=== PATIENT | male | born 1990 | race Hispanic/Latino ===

== ENCOUNTER 2021-08-11 06:35 | Inpatient (IN) | payer SELFPAY ==
[~2021-08-11] VITALS: Ht 170.2 cm; Wt 61.2 kg
[2021-08-11 07:13] LABS: BASOPHILS % (AUTO) 0.2 % (0.0-5.0); EOSINOPHILS % (AUTO) 0.6 % (0.0-8.0); HEMATOCRIT 46.9 % (42-54); LYMPHOCYTES % (AUTO) 15.5 % (21.0-51.0); MEAN CORPUSCULAR HEMOGLOBIN 31.6 pg (27.0-33.0); MEAN CORPUSCULAR HGB CONC 34.3 g/dL (32.0-36.0); NEUTROPHILS % (AUTO) 77.3 % (40.0-77.0); PLATELET COUNT (AUTO) 275 K/uL (130-400)
[2021-08-11 07:40] LABS: ALBUMIN 4.9 g/dL (3.5-5.0); BILIRUBIN,TOTAL 0.6 mg/dL (0.2-1.0); CREATININE 0.9 mg/dL (0.5-1.5); POTASSIUM 3.8 mmol/L (3.5-5.1); TOTAL PROTEIN, SERUM 8.9 g/dL (6.0-8.3)
[2021-08-11] MEDS ORDERED: KETOROLAC 30MG VIAL (30MG/ML) IV SCH (09:30)
[2021-08-11] MEDS: CEFAZOLIN SODIUM 1 GM VIAL IVP SCH ×2 (13:35→20:21)
[2021-08-11] MEDS: LACTATED RINGERS 1000ML 1,000 ML IV SCH (13:35)
[2021-08-11] MEDS: MORPHINE 2 MG SYG IVP PRN ×3 (13:43→22:22)
[2021-08-11 14:59] LABS: INR 1.06 (0.85-1.15); PROTHROMBIN TIME 11.5 SEC (9.6-11.6)
[2021-08-11 15:00] LABS: PARTIAL THROMBOPLASTIN TIME 28.8 SEC (26.3-35.5)
[2021-08-11 16:30] VITALS: BP 133/76
[2021-08-11 20:00] VITALS: BP 129/76
[2021-08-11] MEDS: KETOROLAC 15MG/ML VIAL (15MG/ML) IV PRN (20:22)
[2021-08-11 21:46] LABS: APPEARANCE,URINE Clear (CLEAR); BILIRUBIN,URINE Negative (NEGATIVE); COLOR,URINE Yellow (YELLOW); GLUCOSE, URINE (UA) Negative (NEGATIVE); KETONES,URINE 40 mg/dL (NEGATIVE); LEUKOCYTE ESTERASE ,URINE Trace (NEGATIVE); NITRATE,URINE Negative (NEGATIVE); OCCULT BLOOD,URINE Negative (NEGATIVE); PROTEIN,URINE Negative (NEGATIVE)
[2021-08-11 21:54] LABS: AMPHET/METH SCREEN,URINE NEGATIVE (NEGATIVE); BARBITURATE SCREEN, URINE NEGATIVE (NEGATIVE); BENZODIAZEPINES SCREEN,URINE NEGATIVE (NEGATIVE); CANNABINOID SCREEN,URINE NEGATIVE (NEGATIVE); COCAINE SCREEN,URINE POSITIVE (NEGATIVE); OPIATE SCREEN,URINE POSITIVE (NEGATIVE); PHENCYCLIDINE SCREEN,URINE NEGATIVE (NEGATIVE); RBC,URINE 0-1 /HPF (0-1)
[2021-08-11 21:56] LABS: BACTERIA,URINE Few /HPF (None Seen)
[2021-08-11 21:57] LABS: SQUAMOUS EPITHELIAL CELL,UR Rare /HPF (0-2)
[2021-08-11] MEDS: METRONIDAZOLE 500MG/100ML BAG 100 ML IVPB SCH (22:19)
[2021-08-12] VITALS: BP 117/67
[2021-08-12] MEDS: LACTATED RINGERS 1000ML 1,000 ML IV SCH ×2 (01:07→15:10)
[2021-08-12] MEDS: KETOROLAC 15MG/ML VIAL (15MG/ML) IV PRN ×2 (03:02→20:03)
[2021-08-12] MEDS: CEFAZOLIN SODIUM 1 GM VIAL IVP SCH (03:41)
[2021-08-12 04:00] VITALS: BP 130/64
[2021-08-12] MEDS: METRONIDAZOLE 500MG/100ML BAG 100 ML IVPB SCH (05:40)
[2021-08-12] MEDS: MORPHINE 2 MG SYG IVP PRN ×5 (05:40→23:33)
[2021-08-12] MEDS ORDERED: ACETAMINOPHEN 325 MG/10.15ML UDCUP PO PRN (06:30)
[2021-08-12 07:40] LABS: BASOPHILS % (AUTO) 0.2 % (0.0-5.0); EOSINOPHILS % (AUTO) 0.7 % (0.0-8.0); LYMPHOCYTES % (AUTO) 19.3 % (21.0-51.0); MEAN CORPUSCULAR HEMOGLOBIN 32.2 pg (27.0-33.0); MEAN CORPUSCULAR HGB CONC 34.5 g/dL (32.0-36.0); MEAN CORPUSCULAR VOLUME 93.2 fL (79-99); NEUTROPHILS % (AUTO) 70.5 % (40.0-77.0); PLATELET COUNT (AUTO) 195 K/uL (130-400); RED BLOOD CELL COUNT(AUTO) 4.72 MIL/uL (4.50-6.20); RED CELL DISTRIBUTION WIDTH 11.9 % (11.0-15.5)
[2021-08-12 08:00] VITALS: BP 123/65
[2021-08-12 08:07] LABS: ALBUMIN 3.4 g/dL (3.5-5.0); BILIRUBIN,TOTAL 1.9 mg/dL (0.2-1.0); CRP QUANTITATIVE 139.7 mg/L (0.00-9.0); TOTAL PROTEIN, SERUM 6.9 g/dL (6.0-8.3)
[2021-08-12 09:25] LABS: ERYTHROCYTE SEDIMENTATION RATE 2 MM/HR (0-15)
[2021-08-12] MEDS: FAMOTIDINE 20MG VIAL IV SCH ×2 (09:43→20:02)
[2021-08-12] MEDS ORDERED: PHARMACY COMMUNICATION MISC SCH (11:30)
[2021-08-12] MEDS ORDERED: AMP/SULBAC 1.5GM+NS 100ML 100 ML IV SCH (11:30)
[2021-08-12 12:00] VITALS: BP 127/75
[2021-08-12] MEDS: AMP/SULBAC 1.5GM+NS 100ML 100 ML IV SCH ×3 (12:35→23:33)
[2021-08-12] MEDS ORDERED: LORAZEPAM 2 MG/ML 1 ML VIAL IVP PRN (13:30)
[2021-08-12] MEDS ORDERED: PHARMACY COMMUNICATION MISC PRN (13:30)
[2021-08-12] MEDS ORDERED: THIAMINE HCL 100 MG/ML 2ML VIAL IVP SCH (14:15)
[2021-08-12 16:00] VITALS: BP 131/82
[2021-08-12] MEDS ORDERED: DEXAMETHASONE SOD PHOSPHATE 4 MG/ML 1ML VIAL IV ONE (17:30)
[2021-08-12 19:59] VITALS: BP 128/76
[2021-08-12] MEDS: CHLORHEXIDINE GLUCONATE 473 ML MOUTHWASH MM SCH (21:44)
[2021-08-13] VITALS (27 sets, daily range): BP systolic 118–153; BP diastolic 63–87
[2021-08-13] MEDS: LACTATED RINGERS 1000ML 1,000 ML IV SCH ×2 (02:47→17:17)
[2021-08-13] MEDS: KETOROLAC 15MG/ML VIAL (15MG/ML) IV PRN ×2 (05:11→20:57)
[2021-08-13] MEDS: AMP/SULBAC 1.5GM+NS 100ML 100 ML IV SCH ×3 (05:11→17:17)
[2021-08-13] MEDS: THIAMINE HCL 100 MG/ML 2ML VIAL IVP SCH (09:00)
[2021-08-13] MEDS: FAMOTIDINE 20MG VIAL IV SCH ×2 (09:39→20:47)
[2021-08-13] MEDS: CHLORHEXIDINE GLUCONATE 473 ML MOUTHWASH MM SCH ×3 (09:48→20:53)
[2021-08-13] MEDS ORDERED: SUCCINYLCHOLINE CHLORIDE 20 MG/ML 10 ML VIAL ONE ×2 (09:55→13:16)
[2021-08-13] MEDS ORDERED: DEXAMETHASONE SOD PHOSPHATE 10MG/ML 1ML VIAL ONE (09:55)
[2021-08-13] MEDS ORDERED: LIDOCAINE PF 100MG/5ML (2%) SYRINGE 5ML ONE ×2 (09:55→13:23)
[2021-08-13] MEDS ORDERED: ONDANSETRON 4MG INJ ONE (09:57)
[2021-08-13] MEDS ORDERED: MIDAZOLAM HCL 1 MG/ML 2ML VIAL ONE (09:57)
[2021-08-13] MEDS ORDERED: GLYCOPYRROLATE 1 MG/5 ML SYRINGE ONE (09:57)
[2021-08-13] MEDS ORDERED: PROPOFOL 10 MG/ML 20ML VIAL IV ONE (09:58)
[2021-08-13] MEDS ORDERED: NEOSTIGMINE 5MG/5ML SYR IV ONE (09:58)
[2021-08-13] MEDS ORDERED: ROCURONIUM 10MG/1ML SYR 10 MG/ML ML ONE ×2 (09:58→11:31)
[2021-08-13] MEDS ORDERED: FENTANYL CITRATE PF 50 MCG/1 ML 2ML VIAL ONE ×2 (09:58→12:51)
[2021-08-13] MEDS ORDERED: OXYMETAZOLINE HCL SPRAY 15 ML BOTTLE ONE (10:11)
[2021-08-13] MEDS ORDERED: PHENYLEPHRINE HCL 10 MG/ML 1ML VIAL IV ONE (10:12)
[2021-08-13] MEDS ORDERED: LIDOCAINE HCL-MPF 1% 2ML VIAL ONE (11:20)
[2021-08-13] MEDS ORDERED: BUPIVACAINE/PF 0.25% 30ML VIAL IJ ONE (11:21)
[2021-08-13] MEDS ORDERED: BUPIVACAINE/PF 0.5% 10ML VIAL ONE (11:21)
[2021-08-13] MEDS ORDERED: BUPIVACAINE/EPI/PF 0.25% 30ML VIAL IJ ONE (11:24)
[2021-08-13] MEDS ORDERED: FENTANYL CITRATE PF 50 MCG/1 ML 5ML AMP IV ONE (11:29)
[2021-08-13] MEDS ORDERED: BUPIVACAINE/EPI/PF 0.25% 10ML VIAL IJ ONE (11:40)
[2021-08-13] MEDS ORDERED: BACITRACIN 28.4 GM OINT TP ONE (13:26)
[2021-08-13] MEDS ORDERED: MEPERIDINE-PF 25 MG/ML SYG ONE (14:07)
[2021-08-13] MEDS ORDERED: KETOROLAC 30MG VIAL (30MG/ML) ONE (14:49)
[2021-08-13] MEDS: MORPHINE 2 MG SYG IVP PRN (17:25)
[2021-08-13] MEDS: BACITRACIN 28.4 GM OINT TP SCH (20:48)
[2021-08-14] VITALS: BP 112/61
[2021-08-14] MEDS: AMP/SULBAC 1.5GM+NS 100ML 100 ML IV SCH ×5 (00:42→23:47)
[2021-08-14] MEDS: MORPHINE 2 MG SYG IVP PRN ×3 (00:43→20:10)
[2021-08-14 04:00] VITALS: BP 110/58
[2021-08-14 05:30] LABS: HEMATOCRIT 38.3 % (42-54); MEAN CORPUSCULAR HEMOGLOBIN 31.4 pg (27.0-33.0); MEAN CORPUSCULAR HGB CONC 33.4 g/dL (32.0-36.0); MEAN CORPUSCULAR VOLUME 94.1 fL (79-99); RED BLOOD CELL COUNT(AUTO) 4.07 MIL/uL (4.50-6.20); RED CELL DISTRIBUTION WIDTH 11.9 % (11.0-15.5); WHITE BLOOD COUNT (AUTO) 11.7 K/uL (4.8-10.8)
[2021-08-14 05:52] LABS: CREATININE 0.7 mg/dL (0.5-1.5); CRP QUANTITATIVE 54.8 mg/L (0.00-9.0); POTASSIUM 3.9 mmol/L (3.5-5.1)
[2021-08-14 07:53] VITALS: BP 123/84
[2021-08-14] MEDS: THIAMINE HCL 100 MG/ML 2ML VIAL IVP SCH (08:45)
[2021-08-14] MEDS: FAMOTIDINE 20MG VIAL IV SCH ×2 (08:45→20:06)
[2021-08-14] MEDS: BACITRACIN 28.4 GM OINT TP SCH ×2 (08:46→20:11)
[2021-08-14] MEDS: CHLORHEXIDINE GLUCONATE 473 ML MOUTHWASH MM SCH ×3 (08:46→20:10)
[2021-08-14 11:10] VITALS: BP 119/74
[2021-08-14] MEDS: LACTATED RINGERS 1000ML 1,000 ML IV SCH (11:35)
[2021-08-14 16:16] VITALS: BP 117/72
[2021-08-14 19:00] VITALS: BP 128/75
[2021-08-15] VITALS: BP 125/79
[2021-08-15] MEDS: KETOROLAC 15MG/ML VIAL (15MG/ML) IV PRN (00:08)
[2021-08-15 04:00] VITALS: BP 125/86
[2021-08-15] MEDS: AMP/SULBAC 1.5GM+NS 100ML 100 ML IV SCH (05:37)
[2021-08-15 08:00] VITALS: BP 123/75
[2021-08-15] MEDS: CHLORHEXIDINE GLUCONATE 473 ML MOUTHWASH MM SCH (08:33)
[2021-08-15] MEDS: THIAMINE HCL 100 MG/ML 2ML VIAL IVP SCH (08:33)
[2021-08-15] MEDS: FAMOTIDINE 20MG VIAL IV SCH (08:33)
[2021-08-15] MEDS: BACITRACIN 28.4 GM OINT TP SCH (08:35)
[2021-08-15] MEDS ORDERED: ACET1TAB25 PO (08:57)
[2021-08-15 09:17] LABS: HEMATOCRIT 40.6 % (42-54); MEAN CORPUSCULAR HEMOGLOBIN 31.1 pg (27.0-33.0); MEAN CORPUSCULAR VOLUME 94.2 fL (79-99); RED BLOOD CELL COUNT(AUTO) 4.31 MIL/uL (4.50-6.20); RED CELL DISTRIBUTION WIDTH 11.8 % (11.0-15.5)
[2021-08-15 09:27] LABS: CREATININE 0.9 mg/dL (0.5-1.5); POTASSIUM 3.9 mmol/L (3.5-5.1)
[2021-08-15] MEDS: LACTATED RINGERS 1000ML 1,000 ML IV SCH (09:50)
[2021-08-15] MEDS ORDERED: LACTULOSE 20 GM/30 ML UDCUP ONE (10:20)
[2021-08-15] MEDS ORDERED: LACTULOSE 20 GM/30 ML UDCUP PO SCH (10:30)
[2021-08-15 12:00] VITALS: BP 132/78
== END 2021-08-15 13:15 | disposition home or self-care (01) | DRG 141 ==
LOC: EDH 06:35 → EDHIP 06:36 → 3AH 16:15
PROVIDERS: ADMIT Internal Medicine; ATTEND Internal Medicine
PROC: 0NH Head and Facial Bones, Insertion (ICD-10-PCS; 2021-08-13)
PROC: 0NSV04Z Reposition Left Mandible with Internal Fixation Device, Open Approach (ICD-10-PCS; principal; 2021-08-13 11:32)
DX: S02.652A Fracture of angle of left mandible, initial encounter for closed fracture (principal); M62.82 Rhabdomyolysis; D72.829 Elevated white blood cell count, unspecified; Z20.822 Contact with and (suspected) exposure to COVID-19; W11.XXXA Fall on and from ladder, initial encounter; M26 Dentofacial anomalies [including malocclusion]; F14.90 Cocaine use, unspecified, uncomplicated; Y93.89 Activity, other specified; Y92.89 Other specified places as the place of occurrence of the external cause; Y99.8 Other external cause status
CPT/HCPCS: 36415; 70450; 70486; 71045; 72125; 80048; 80053; 80305; 81001; 82550; 84145; 85025; 85027; 85610; 85651; 85730; 86140; 86850; 86900; 86901; 87040; 87635; 99291; C9803; G0378; J0295; J0330; J0690; J1100; J1885; J2001; J2175; J2250; J2370; J2405; J2704; J2710; J3010; J3411; J3490; J7120

== ENCOUNTER 2022-02-24 20:46 | Emergency (ER) | payer OTHER ==
[~2022-02-24] VITALS: Ht 170.2 cm; Wt 65.3 kg
[~2022-02-24 20:46] MED LIST: ACET-2079 PO
[2022-02-24 20:47] VITALS: BP_SYST 122
[2022-02-24] MEDS ORDERED: LIDOCAINE HCL 2% VISCOUS 15 ML UDCUP ONE (22:14)
[2022-02-24] MEDS ORDERED: ACETAMINOPHEN 500 MG TABLET ONE (22:14)
[2022-02-24] MEDS ORDERED: MAG/ALUM/SIMETH 30 ML UDCUP ONE (22:14)
[2022-02-24] MEDS ORDERED: LIDOCAINE HCL 2% VISCOUS 15 ML UDCUP PO ONE (22:30)
[2022-02-24] MEDS ORDERED: MAG/ALUM/SIMETH 30 ML UDCUP PO ONE (22:30)
[2022-02-24] MEDS ORDERED: ACETAMINOPHEN 500 MG TABLET PO ONE (22:30)
[2022-02-24 22:33] VITALS: BP_DIAS 118
== END 2022-02-24 22:36 | disposition home or self-care (01) ==
LOC: EDH 20:46
DX: J02.9 Acute pharyngitis, unspecified (principal); Z20.822 Contact with and (suspected) exposure to COVID-19
CPT/HCPCS: 99283; 87635; 87880; 87804 ×2; C9803

== ENCOUNTER 2023-07-23 16:05 | Emergency (ER) | payer OTHER ==
[~2023-07-23] VITALS: Ht 170.2 cm; Wt 68.0 kg
[2023-07-23 17:00] LABS: BASOPHILS # (AUTO) 0.02 K/uL (0.00-0.20); BASOPHILS % (AUTO) 0.3 % (0.0-5.0); EOSINOPHILS # (AUTO) 0.07 K/uL (0.00-0.70); EOSINOPHILS % (AUTO) 0.9 % (0.0-8.0); IMMATURE GRANULOCYTE ABSOLUTE 0.03 K/uL (0-1); LYMPHOCYTES # (AUTO) 2.2 K/uL (1.0-4.8); LYMPHOCYTES % (AUTO) 29.7 % (21.0-51.0); MEAN CORPUSCULAR HGB CONC 35.4 g/dL (32.0-36.0); MEAN CORPUSCULAR VOLUME 90.4 fL (79-99); MONOCYTES # (AUTO) 0.6 K/uL (0.1-1.0); MONOCYTES % (AUTO) 8.3 % (3.0-13.0); NEUTROPHILS # (AUTO) 4.5 K/uL (1.8-7.7); NEUTROPHILS % (AUTO) 60.4 % (40.0-77.0); PLATELET COUNT (AUTO) 286 K/uL (130-400); RED BLOOD CELL COUNT(AUTO) 5.09 MIL/uL (4.50-6.20); RED CELL DISTRIBUTION WIDTH 12.4 % (11.0-15.5); WHITE BLOOD COUNT (AUTO) 7.5 K/uL (4.8-10.8)
[2023-07-23 17:11] LABS: CREATININE 1.1 mg/dL (0.5-1.5); POTASSIUM 3.9 mmol/L (3.5-5.1)
[2023-07-23 17:21] LABS: ALBUMIN 4.1 g/dL (3.5-5.0); BILIRUBIN,TOTAL 0.8 mg/dL (0.2-1.0)
[2023-07-23] MEDS ORDERED: IBUPROFEN 600 MG TABLET PO ONE (17:30)
[2023-07-23] MEDS ORDERED: MAG/ALUM/SIMETH 30 ML UDCUP PO ONE (17:30)
[2023-07-23] MEDS ORDERED: LIDOCAINE HCL 2% VISCOUS 15 ML UDCUP PO ONE (17:30)
[2023-07-23] MEDS ORDERED: FAMOTIDINE 20MG TAB PO ONE (17:30)
[2023-07-23] MEDS ORDERED: DICYCLOMINE HCL 10 MG/5 ML ML PO ONE (17:30)
[2023-07-23] MEDS ORDERED: IBUP-2070 PO (19:42)
[2023-07-23] MEDS ORDERED: PRED20TA3 PO (19:42)
[2023-07-23] MEDS ORDERED: METH-811 PO (19:42)
[2023-07-23] MEDS ORDERED: TIZANIDINE HCL 2 MG TABLET PO SCH (20:00)
[2023-07-23 20:20] VITALS: BP 124/72; PULSE 79; RESP 18; O2SAT 98
== END 2023-07-23 20:22 | disposition home or self-care (01) ==
LOC: EDH 16:05
DX: S46.812A Strain of other muscles, fascia and tendons at shoulder and upper arm level, left arm, initial encounter (principal); Z98.890 Other specified postprocedural states; X58.XXXA Exposure to other specified factors, initial encounter; Y93.89 Activity, other specified; Y92.89 Other specified places as the place of occurrence of the external cause; Y99.8 Other external cause status
CPT/HCPCS: 36415; 71045; 80053; 84484; 85025; 93005